=== PATIENT | female | born 1935 | race Caucasian/White ===

== ENCOUNTER 2017-10-18 06:40 | Day surgery (SDC) | payer MEDICARE, BC ==
[2017-10-11 14:40] LABS: BASOPHILS % (AUTO) 0.7 % (0-1); EOSINOPHILS # (AUTO) 0.2 X10'3 (0-0.9); EOSINOPHILS % (AUTO) 3.2 % (0-6); LYMPHOCYTES # (AUTO) 1.3 X10'3 (1.1-4.8); LYMPHOCYTES % (AUTO) 19.9 % (21-51); MEAN CORPUSCULAR HEMOGLOBIN 30.9 PG (27.0-31.0); MEAN CORPUSCULAR HGB CONC 34.2 % (33.0-36.5); MEAN CORPUSCULAR VOLUME 90.3 FL (78-98); MEAN PLATELET VOLUME 8.1 FL (7.4-10.4); MONOCYTES # (AUTO) 0.6 X10'3 (0-0.9); MONOCYTES % (AUTO) 8.8 % (2-12); NEUTROPHILS # (AUTO) 4.5 X10'3 (1.8-7.7); NEUTROPHILS % (AUTO) 67.4 % (42-75); PRE OP HEMATOCRIT 40.3 % (35.0-45.0); PRE OP HEMOGLOBIN 13.8 g/dL (12.0-16.0); PRE OP PLATELET COUNT 321 X10'3 (140-440); RED BLOOD COUNT 4.46 X10'6 (4.20-5.60); RED CELL DISTRIBUTION WIDTH 13.1 % (11.5-14.5)
[2017-10-11 14:43] LABS: CLARITY,URINE CLOUDY (Clear); COLOR,URINE YELLOW (Yellow); GLUCOSE, URINE NEGATIVE (Neg); KETONES,URINE NEGATIVE (Neg); LEUKOCYTE ESTERASE ,URINE MODERATE (Neg); NITRITES, URINE POSITIVE (Neg); OCCULT BLOOD,URINE MODERATE (Neg); PROTEIN,URINE NEGATIVE (Neg); UROBILINOGEN,URINE 0.2 E.U/dL (0.2-1.0)
[2017-10-11 14:54] LABS: ALBUMIN 3.9 G/DL (3.4-5.0); ALBUMIN/GLOBULIN RATIO 1.1 (1.1-1.5); ALKALINE PHOSPHATASE 40 IU/L (46-116); BLOOD UREA NITROGEN 20 MG/DL (7-18); BUN/CREATININE RATIO 32.8 (6.6-38.0); CALCIUM 9.5 MG/DL (8.5-10.1); CHLORIDE 105 MMOL/L (99-107); CREATININE 0.61 MG/DL (0.40-0.90); PRE OP ALT 16 U/L (30-65); PRE OP ANION GAP 11 (8-16); PRE OP AST 15 U/L (10-37); PRE OP BILIRUB, TOTAL 0.4 MG/DL (0.0-1.0); PRE OP GLUCOSE 105 MG/DL (70-104); PRE OP POTASSIUM 4.2 MMOL/L (3.4-5.1); PRE OP SODIUM 141 MMOL/L (135-145); TOTAL CARBON DIOXIDE 24.8 MMOL/L (24-32); TOTAL PROTEIN 7.4 G/DL (6.4-8.2); eGFR > 90 ML/MIN
[2017-10-11 15:04] LABS: UA COLLECTION TYPE CLN CATCH MIDSTREAM
[2017-10-11 15:08] LABS: WBC,URINE 50-100 /HPF (0-4)
[2017-10-11 15:09] LABS: HEMOGLOBIN A1C 6.7 % (4.5-6.2)
[2017-10-11 15:11] LABS: BACTERIA,URINE 4+ /HPF (Neg); RBC,URINE 0-2 /HPF (0-2); SQUAMOUS EPITHELIAL CELL,UR FEW /LPF (FEW)
[2017-10-11 15:13] LABS: CAL OXALATE CRYSTALS 1+ /HPF (NEGATIVE)
[~2017-10-18] VITALS: Ht 170.2 cm; Wt 69.0 kg
[2017-10-18] VITALS (9 sets, daily range): BP systolic 106–164; BP diastolic 44–71
[~2017-10-18 06:40] MED LIST: ASPI-1265 PO; CALC-500 PO; CLOP75TA35 PO; COL100C PO; FENO145T38 PO; LIDO700A22 TP; LISI10TA4 PO; LOP25T PO; MAGN400T25 PO; METF500T PO; MULT-1085 PO; NORCO10T PO; PREG75CA30 PO; PREVCR VG; ROSU5TAB4 PO; SYN0.0125T PO; VITA1TAB PO; cefazolin/dext.iso 2gm/50ml 50 ML IV ONE; famotidine 20mg tablet PO ONE; ringers solution, lacted 1,000 ML IV SCH
[2017-10-18] MEDS ORDERED: epiNEPHrine 1 mg/ml inj ONE (07:14)
[2017-10-18] MEDS ORDERED: BUPIVAcaine/PF 2.5 mg/ml (0.25%) 30ml vial ONE (07:15)
[2017-10-18] MEDS ORDERED: ceFAZolin 1000mg inj ONE (07:16)
[2017-10-18] MEDS ORDERED: LIDOcaine 1% (10mg/ml) 2ml vial ONE (07:17)
[2017-10-18] MEDS ORDERED: fentaNYL/PF 50MCG/1 ML 2ML syringe ONE (08:12)
[2017-10-18] MEDS ORDERED: midazolam 2 mg/2 ml injection ONE (08:12)
[2017-10-18] MEDS ORDERED: glycopyrrolate 0.2mg/ml inj ONE (08:14)
[2017-10-18] MEDS ORDERED: rocuronium 10mg/ml inj IV ONE (08:14)
[2017-10-18] MEDS ORDERED: neostigmine methylsulfate 1 MG/ML 10ml vial ONE (08:14)
[2017-10-18] MEDS ORDERED: ondansetron/PF 4mg/2ml inj ONE (08:14)
[2017-10-18] MEDS ORDERED: dexamethasone sod phosphate 4mg/ml inj. ONE (08:14)
[2017-10-18] MEDS ORDERED: LIDOcaine 1%/PF (10mg/ml) 5ml vial ONE (08:14)
[2017-10-18] MEDS ORDERED: propofol inj 20 ML IV ONE (08:14)
[2017-10-18] MEDS ORDERED: ringers solution, lacted 1,000 ML IV SCH (08:17)
[2017-10-18] MEDS ORDERED: hydrALAZINE 20mg/ml inj. IV PRN (08:20)
[2017-10-18] MEDS ORDERED: labetalol 5mg/ml 20ml inj. IV PRN (08:20)
[2017-10-18] MEDS ORDERED: ondansetron/PF 4mg/2ml inj IV PRN (08:20)
[2017-10-18] MEDS ORDERED: fentaNYL/PF 50MCG/1 ML 2ML syringe IV PRN ×2 (08:20)
[2017-10-18] MEDS ORDERED: CIPROFLOXACIN 400MG/200ML premix IV ONE (08:35)
[2017-10-18] MEDS ORDERED: desflurane 240ml liquid inh. IH ONE (08:38)
[2017-10-18] MEDS ORDERED: HYDROcodone/acetaminophen 10/325mg tab PO ONE (10:25)
== END 2017-10-18 11:01 | disposition home or self-care (01) ==
LOC: PAS 06:40
PROVIDERS: ATTEND Surgery
DX: K42.9 Umbilical hernia without obstruction or gangrene (principal); I10 Essential (primary) hypertension; I25.2 Old myocardial infarction; E03.9 Hypothyroidism, unspecified; J45.909 Unspecified asthma, uncomplicated; G89.29 Other chronic pain; I25.10 Atherosclerotic heart disease of native coronary artery without angina pectoris; E11.40 Type 2 diabetes mellitus with diabetic neuropathy, unspecified; G47.33 Obstructive sleep apnea (adult) (pediatric); M19.90 Unspecified osteoarthritis, unspecified site; N39.0 Urinary tract infection, site not specified; Z79.84 Long term (current) use of oral hypoglycemic drugs; Z91.048 Other nonmedicinal substance allergy status; Z79.82 Long term (current) use of aspirin; Z90.710 Acquired absence of both cervix and uterus; Z98.42 Cataract extraction status, left eye; Z98.41 Cataract extraction status, right eye; Z95.1 Presence of aortocoronary bypass graft; Z87.891 Personal history of nicotine dependence; Z96.641 Presence of right artificial hip joint; Z90.89 Acquired absence of other organs
CPT/HCPCS: 36415; 49585; 80053; 81001; 82948; 83036; 85025; 87077; 87088; 87186; 88341; 88342; 93005; J0171; J0690; J0744; J1100; J2001; J2250; J2270; J2405; J2704; J2710; J3010; J3490; J7120; 88307; A7000

== ENCOUNTER 2018-02-01 08:24 | Day surgery (SDC) | payer MEDICARE, BC ==
[~2018-02-01] VITALS: Ht 170.2 cm; Wt 71.2 kg
[~2018-02-01 08:24] MED LIST changes: +LIDOcaine 1% 30ml preserv. free vial SQ STA; -cefazolin/dext.iso 2gm/50ml 50 ML IV ONE; -famotidine 20mg tablet PO ONE; -ringers solution, lacted 1,000 ML IV SCH
[2018-02-01 08:55] VITALS: BP 142/74
[2018-02-01] MEDS ORDERED: normal saline 1000ml 1,000 ML IV PRN (09:00)
[2018-02-01] MEDS ORDERED: albumin (human) 25% 100 ML IV solution IV PRN (09:00)
== END 2018-02-01 09:45 | disposition home or self-care (01) ==
LOC: SSTAY O 08:24
PROVIDERS: ATTEND Radiology Diagnostic Radiology
DX: R18.8 Other ascites (principal); I10 Essential (primary) hypertension; I25.10 Atherosclerotic heart disease of native coronary artery without angina pectoris; J44.9 Chronic obstructive pulmonary disease, unspecified; M19.90 Unspecified osteoarthritis, unspecified site; E11.9 Type 2 diabetes mellitus without complications; Z90.89 Acquired absence of other organs; Z98.42 Cataract extraction status, left eye; Z96.641 Presence of right artificial hip joint; Z98.41 Cataract extraction status, right eye; Z90.710 Acquired absence of both cervix and uterus; Z79.82 Long term (current) use of aspirin; Z79.84 Long term (current) use of oral hypoglycemic drugs; Z95.1 Presence of aortocoronary bypass graft; Z95.5 Presence of coronary angioplasty implant and graft; Z86.74 Personal history of sudden cardiac arrest; Z87.891 Personal history of nicotine dependence; Z85.41 Personal history of malignant neoplasm of cervix uteri; Z85.07 Personal history of malignant neoplasm of pancreas; Z98.890 Other specified postprocedural states; Z79.899 Other long term (current) drug therapy
CPT/HCPCS: 76705; J3490; J7030

== ENCOUNTER 2018-02-14 03:49 | Outpatient (CLI) | payer MEDICARE, BC ==
[~2018-02-14 03:49] MED LIST changes: -LIDOcaine 1% 30ml preserv. free vial SQ STA
[2018-02-19] MEDS ORDERED: SLEEP AID PO (09:00)
[2018-02-19] MEDS ORDERED: SENN-129 (09:00)
== END 2018-02-14 23:59 | disposition home or self-care (01) ==
LOC: DIABETIC 03:49
PROVIDERS: ATTEND Specialist
DX: E11.9 Type 2 diabetes mellitus without complications (principal); I10 Essential (primary) hypertension; J44.9 Chronic obstructive pulmonary disease, unspecified; Z87.891 Personal history of nicotine dependence
CPT/HCPCS: G0108